=== PATIENT | female | born 1935 | race Two or more races ===

== ENCOUNTER 2020-03-08 11:32 | Inpatient (IN) | payer MEDICARE, OTHER ==
[~2020-03-08] VITALS: Ht 165.1 cm; Wt 91.3 kg
--- NOTE | 2020-03-08 11:32 | NUR ---
BIB [facility] FROM HOME,C/O CHEST PAIN RADIATING TO L JAW, RAPID AFIB ON THE MONITOR, TO ER BED 2, HOOKED TO MONITOR, CHANGED TO HOSP GOWN, WARM BLANKET PROVIDED. PATIENT AAO x 4, BREATHING EVEN AND UNLABORED. DR DEMARCO AT BEDSIDE
[2020-03-08 11:47] LABS: HEMATOCRIT 38 % (33-45); HEMOGLOBIN 12.3 g/dL (11.5-14.8); MEAN CORPUSCULAR VOLUME 84 fL (82-100); RED BLOOD CELL COUNT(AUTO) 4.46 MIL/uL (4.0-5.2); WHITE BLOOD COUNT (AUTO) 10.5 K/uL (4.3-11.0)
[2020-03-08] MEDS ORDERED: DILTIAZEM HCL 25 MG IV ONE (11:47)
[2020-03-08 11:48] LABS: BASOPHILS # (AUTO) 0.1 /CMM (0.0-0.2); BASOPHILS % (AUTO) 0.9 % (0.0-2.0); EOSINOPHILS % (AUTO) 2.3 % (0.0-6.0); LYMPHOCYTES # (AUTO) 3.3 /CMM (0.8-4.8); MEAN CORPUSCULAR HGB CONC 33 g/dl (31.0-36.0); MONOCYTES # (AUTO) 0.8 /CMM (0.1-1.30); MONOCYTES % (AUTO) 7.5 % (2.0-12.0); NEUTROPHILS # (AUTO) 6.1 /CMM (1.8-8.9); NEUTROPHILS % (AUTO) 58.3 % (43.0-81.0); PLATELET COUNT (AUTO) 289 /CMM (150-450)
--- NOTE | 2020-03-08 11:53 | NUR ---
CALLED FOR TELE BED, AND SUBMITTED MOVE SHEET TO ADMITTING
[2020-03-08 11:56] LABS: CALCIUM, SERUM 9.4 mg/dL (8.5-10.1); CARBON DIOXIDE 28 mmol/L (21-32); CHLORIDE 98 mmol/L (98-107); GLUCOSE 173 mg/dL (74-106); POTASSIUM 3.3 mmol/L (3.5-5.1); SODIUM SERUM 134 mmol/L (136-145); UREA NITROGEN, BLOOD 12 mg/dL (7-18)
[2020-03-08] MEDS ORDERED: DILTIAZEM HCL 50 MG IV IV ONE (12:00)
[2020-03-08 12:02] LABS: ALANINE AMINOTRANSFERASE 17 U/L (12-78); ALBUMIN 3.4 g/dL (3.4-5.0); ALKALINE PHOSPHATASE 103 U/L (46-116); ASPARTATE AMINOTRANSFERASE 14 U/L (15-37); BILIRUBIN,DIRECT 0.1 mg/dL (0.0-0.2); BILIRUBIN,TOTAL 0.3 mg/dL (0.2-1.0)
--- NOTE | 2020-03-08 12:10 | NUR ---
GOT BED 307-1
[2020-03-08] MEDS ORDERED: ATOR10TA PO ×2 (12:14→12:38)
[2020-03-08] MEDS ORDERED: TEMA15CA PO ×2 (12:14→12:38)
[2020-03-08] MEDS ORDERED: LEVO100T9 PO ×2 (12:14→12:38)
[2020-03-08] MEDS ORDERED: APIX5TAB PO ×3 (12:14→13:23)
[2020-03-08] MEDS ORDERED: MECL-159 PO ×2 (12:14→12:38)
[2020-03-08] MEDS ORDERED: IRBE1TAB41 PO ×2 (12:14→12:38)
[2020-03-08] MEDS ORDERED: POLY15DR40 EACHEYE ×2 (12:22→12:38)
[2020-03-08] MEDS ORDERED: NIFE-35 PO (12:43)
--- NOTE | 2020-03-08 13:00 | NUR ---
DAUGHTER SHILO MENDEZ [phone]
--- NOTE | 2020-03-08 13:08 | NUR ---
REPORT GIVEN TO KSENIA VEE OF TELE UNIT
--- NOTE | 2020-03-08 13:32 | NUR ---
WOLF ARORA DNP AT BEDSIDE
[2020-03-08 13:47] VITALS: BP 123/77
[2020-03-08] MEDS ORDERED: HYDROCODONE/APAP 5/325MG 1 EACH TABLET PO PRN (14:00)
[2020-03-08] MEDS ORDERED: MAG HYDROX/AL HYDROX/SIMETH 30 ML UDC PO PRN (14:00)
[2020-03-08] MEDS ORDERED: DEXTROSE 50%-WATER 50 ML DISP.SYRIN IV PRN (14:00)
[2020-03-08] MEDS ORDERED: Z GUARD REMEDY 2 OZ OINT TP PRN (14:00)
[2020-03-08] MEDS ORDERED: NITROGLYCERIN 0.4 MG/TAB BOTTLE SL PRN (14:00)
[2020-03-08] MEDS ORDERED: ONDANSETRON HCL/PF 4 MG/2 ML VIAL IVP PRN (14:00)
[2020-03-08] MEDS ORDERED: MORPHINE SULFATE INJ 2 MG/ML DISP.SYRIN IV PRN (14:00)
[2020-03-08] MEDS ORDERED: MAGNESIUM HYDROXIDE 30 ML UDC PO PRN (14:00)
[2020-03-08] MEDS ORDERED: POTASSIUM CHLORIDE 20 MEQ TAB.PRT.SR PO ONE (14:00)
--- NOTE | 2020-03-08 14:00 | NUR ---
BUSINESS INTELLIGENCE ETL DEVELOPER NOTES PATIENT ADMITTED FROM ER TELE, 84 Y/OLD FEMALE ON DX OF CHEST PAIN. TELE MONITOR ON HR 77. PATIENT A/O X4, REFUSED PAIN AT THIS TIME. V/S TAKEN BP 128/77, P-124, R-19, O2-97 ROOM AIR, T-97.8. SKIN INTACT, AMBULATORY SELF CARE. IV ACCESS ON LEFT AC INTACT. HOSPITALIST AWARE OF NEW PATIENT , AND MEDICATION. CALL LIGHT WITHIN TO REACH. CONTINUED MONITORING.
[2020-03-08] MEDS ORDERED: POLYVINYL ALCOHOL 15 ML BOTTLE EACHEYE PRN (14:30)
[2020-03-08 16:00] VITALS: BP 128/77
[2020-03-08] MEDS: BLOOD SUGAR DIAGNOSTIC 1 EACH STRIP IN SCH ×2 (16:39→21:11)
[2020-03-08] MEDS: ELIQUIS 5 MG PO SCH (16:56)
--- NOTE | 2020-03-08 16:56 | NUR ---
RN NOTES BS-147 MG/DL PATIENT REFUSED COVERAGE, ALSO ADMINISTERED SCHEDULED MEDICATION, V/S STABLE. ECHO DONE AT THIS TIME VIA US TECH, PATIENT REFUSED PAIN. CALL LIGHT WITHIN TO REACH, SAFETY PRECAUTION MAINTAINED ALL THE TIME.
[2020-03-08] MEDS ORDERED: APIXABAN 5 MG TABLET PO SCH (17:00)
--- NOTE | 2020-03-08 19:30 | NUR ---
RN NOTES TROPONIN LEVEL IS 0.210 AT THIS TIME NOTIFIED ONCSAMY ANGEL, WAITING FOR RESPOND. PATIENT WAS COMPLAINING OF HEADACHE. PATIENT AMBULATORY SELF CARE. NO ACUTE RESPIRATORY DISTRESS. ENDORSED ONCOMING NURSE FOLLOW PLAN OF CARE.
[2020-03-08 20:00] VITALS: BP_SYST 112; BP_DIAS 54; BP_DIAS 57
[2020-03-08] MEDS: ACETAMINOPHEN 325 MG TABLET PO PRN (20:08)
[2020-03-08] MEDS: ASPIRIN 81 MG TAB.CHEW PO SCH (20:52)
[2020-03-08] MEDS: INSULIN REGULAR, HUMAN 100 UNIT/ML 3 ML VIAL SQ PRN (21:10)
[2020-03-09] VITALS (7 sets, daily range): BP systolic 125–136; BP diastolic 56–69
[2020-03-09] MEDS: ZOLPIDEM TARTRATE 5 MG TABLET PO PRN ×2 (01:22→23:15)
--- NOTE | 2020-03-09 05:33 | NUR ---
RN notes Patient awake in bed comfortably resting. Alert and oriented, verbally able to communicate needs (turkmen speaking). No distress noted, breathing even and unlabored. On O2 via nasal cannula tolerating well. No complaint of pain or discomfort. PPatient asked for sleeping pills, ambien 5mg given with help. Troponin level at 11:42 was <0.017, 17:15 0.210 and at 23.28 0.293. Relayed results to MD (Dr. Osuna) with no orders as of this time. Kept clean and dry. Will endorse to next shift for continuity of care.
[2020-03-09 06:26] LABS: BASOPHILS # (AUTO) 0.1 /CMM (0.0-0.2); BASOPHILS % (AUTO) 1.2 % (0.0-2.0); EOSINOPHILS % (AUTO) 3.1 % (0.0-6.0); HEMATOCRIT 35 % (33-45); HEMOGLOBIN 11.6 g/dL (11.5-14.8); LYMPHOCYTES # (AUTO) 3.2 /CMM (0.8-4.8); LYMPHOCYTES % (AUTO) 35.4 % (20.0-44.0); MEAN CORPUSCULAR HGB CONC 33 g/dl (31.0-36.0); MEAN CORPUSCULAR VOLUME 84 fL (82-100); MONOCYTES # (AUTO) 0.9 /CMM (0.1-1.30); MONOCYTES % (AUTO) 10.1 % (2.0-12.0); NEUTROPHILS # (AUTO) 4.6 /CMM (1.8-8.9); NEUTROPHILS % (AUTO) 50.2 % (43.0-81.0); PLATELET COUNT (AUTO) 265 /CMM (150-450); RED BLOOD CELL COUNT(AUTO) 4.22 MIL/uL (4.0-5.2); WHITE BLOOD COUNT (AUTO) 9.1 K/uL (4.3-11.0)
[2020-03-09 06:53] LABS: CALCIUM, SERUM 8.8 mg/dL (8.5-10.1); CREATININE 1.2 mg/dL (0.6-1.3); MAGNESIUM 2.2 mg/dL (1.8-2.4); PHOSPHORUS 3.5 mg/dL (2.5-4.9); POTASSIUM 4.1 mmol/L (3.5-5.1)
[2020-03-09 07:05] LABS: THYROID STIMULATING HORMONE 1.887 uIU/mL (0.358-3.74)
[2020-03-09] MEDS: LEVOTHYROXINE SODIUM 100 MCG TABLET PO SCH (07:56)
[2020-03-09] MEDS: BLOOD SUGAR DIAGNOSTIC 1 EACH STRIP IN SCH ×4 (07:56→21:58)
--- NOTE | 2020-03-09 08:00 | NUR ---
RN NOTES RECEIVED PATIENT IN THE BED A/O X3, ON O2-2L NC, PATIENT TELE HR 79, PATIENT REFUSED PAIN, ADMINISTERED SCHEDULED MEDICATION, V/S STABLE, BS-88 MG/DL, PATIENT TOLERATED BREAKFAST WELL. PATIENT USING BATHROOM, CALL LIGHT WITHIN TO REACH, IV ACCESS ON LEFT AC INTACT. CONTINUED MONITORING.
[2020-03-09] MEDS: ATORVASTATIN 10 MG TABLET PO SCH (08:27)
[2020-03-09] MEDS: ASPIRIN 81 MG TAB.CHEW PO SCH (08:28)
[2020-03-09] MEDS: ELIQUIS 5 MG PO SCH ×2 (08:32→17:52)
[2020-03-09] MEDS: HYDROCHLOROTHIAZIDE PO SCH (08:32)
[2020-03-09] MEDS: IRBESARTAN PO SCH (08:32)
--- NOTE | 2020-03-09 08:42 | NUR ---
RN NOTES PATIENT SCHEDULED CT ANGIO HEART WITH 3 D IMAGES, , CONSENT SIGNED.
[2020-03-09] MEDS ORDERED: APIXABAN 5 MG TABLET PO SCH ×2 (09:00)
[2020-03-09] MEDS ORDERED: NIFEdipine XL (30MG) 30 MG TAB PO SCH (09:00)
[2020-03-09] MEDS ORDERED: methylPREDNISolone SOD SUCC 125 MG/2ML VIAL IV ONE (10:00)
[2020-03-09] MEDS ORDERED: diphenhydrAMINE HCL 50 MG CAPSULE PO ONE (10:00)
--- NOTE | 2020-03-09 10:12 | NUR ---
RN NOTES PATIENT HAS ALLERGY OF IODINE, GOING TO THE CT ANGIOGRAPHY, AND PER DAIRY CATTLE FARM WORKER PRESCRIBED BEFORE TEST, BENADRYL 25 MG PO X1, NS SOLWE MEDROL 125 MG/ML IV PUSH Addendum: 03/09/20 at 1020 by MARY GRACE EDMONDS RN UPPER NOTES CORRECTION FOR DOCUMENTATION: SOLU MEDROL 125 MG/ML IV PUSH X1. PATIENT WILL EDUCATION TEACHER IN 30 MINS PER CAT LAB.
--- NOTE | 2020-03-09 10:20 | NUR ---
rn notes patient stable scrap picker for CT angio at this time.
[2020-03-09] MEDS ORDERED: IV NS 0.9% 250 ML IV ONE (10:29)
[2020-03-09] MEDS ORDERED: IOHEXOL-350 100 ML VIAL IV ONE (10:29)
[2020-03-09] MEDS ORDERED: METOPROLOL TARTRATE INJ 5 MG/5 ML AMPUL ONE (10:30)
[2020-03-09] MEDS ORDERED: NITROGLYCERIN 0.4 MG/TAB BOTTLE SL ONE (10:30)
[2020-03-09] MEDS ORDERED: NITROGLYCERIN 0.4 MG/TAB BOTTLE ONE (10:30)
[2020-03-09] MEDS ORDERED: IV NS 0.9% 500 ML IV PRN (10:30)
[2020-03-09] MEDS: METOPROLOL TARTRATE INJ 5 MG/5 ML AMPUL IVP PRN ×2 (10:51→10:56)
--- NOTE | 2020-03-09 11:20 | NUR ---
CTA PROCEDURE DONE PT IS AAOX4, NOT IN RESPIRATORY DISTRESS, V/S STABLE, KEPT RESTED AND COMFORTABLE, IV SITE INTACT AND INFUSING WELL, REPORT GIVEN TO MARIUSZ GARCIA FOR ERIN.
--- NOTE | 2020-03-09 11:28 | NUR ---
rn notes patient back from CT at this time, stable, no acute respiratory distress, refused itching, no sob at this time, continued monitoring.
[2020-03-09] MEDS: METOPROLOL TARTRATE 50 MG TABLET PO SCH ×2 (12:47→17:51)
--- NOTE | 2020-03-09 18:00 | NUR ---
RN NOTES BS-176 MG/DL REFUSED COVERAGE, ADMINISTERED SCHEDULED MEDICATION, V/S WNL, PATIENT REFUSED PAIN, ALSO ADMINISTERED MAALOX FOR HEARTBURN, PATIENT SELF CARE, INFILTRATED IV ACCESS. TOLERATED DINNER WELL. CALL LIGHT WITHIN TO REACH. ENDORSED ONCOMING NURSE FOLLOW PLAN OF CARE.
--- NOTE | 2020-03-09 19:00 | NUR ---
TELE/RN OPENING NOTES: RECEIVED PT. STABLE, AWAKE IN BED. DOMINICAN SPEAKING BUT UNDERSTANDS AND SPEAKS MINIMAL YI. A/OX4. VERBALLY RESPONSIVE AND ABLE TO MAKE NEEDS KNOWN. ON TELE MONITOR WITH CURRENT READING OF SR WITH HR ON THE 60S. AMBULATORY, SKIN INTACT. NO IV SITE NOTED. WILL INSERT A NEW ONE. NO SOB NOTED. NO C/O PAIN AT THIS TIME. BREATHING EVEN AND UNLABORED. ON ROOM AIR, SATURATING WELL. SAFETY MEASURES IN PLACE. WILL CONTINUE TO MONITOR ACCORDINGLY.
[2020-03-09] MEDS: ACETAMINOPHEN 325 MG TABLET PO PRN (20:45)
--- NOTE | 2020-03-09 20:46 | NUR ---
TELE/RN NOTES: PT. REQUESTED TYLENOL FOR HEADACHE. VSS. ADMINISTERED 650MG TYLENOL PO ORDERED. TOLERATED WELL. WILL CONTINUE TO MONITOR.
[2020-03-09] MEDS: INSULIN REGULAR, HUMAN 100 UNIT/ML 3 ML VIAL SQ PRN (21:59)
--- NOTE | 2020-03-09 21:59 | NUR ---
TELE/RN NOTES: ACCUCHECK FOR HS IS 169MG/DL. PT. REFUSED INSULIN COVERAGE. PER PT "BEFORE I DON'T GET INSULIN. SO I DON'T WANT TO." EXPLAINED TO PT. THE RISKS AND BENEFITS X3. STILL REFUSED. WILL KEEP MONITORING.
--- NOTE | 2020-03-09 23:17 | NUR ---
TELE/RN NOTES: PT REQUESTED FOR SLEEPING MEDICATION. VSS. ADMINISTERED AMBIEN 5MG PO ORDERED. WILL REASSESS AND CONTINUE TO MONITOR.
[2020-03-10] VITALS: BP 140/67
[2020-03-10] MEDS: METOPROLOL TARTRATE 50 MG TABLET PO SCH ×2 (00:02→05:59)
[2020-03-10 04:00] VITALS: BP 149/68
[2020-03-10 06:30] LABS: CALCIUM, SERUM 8.7 mg/dL (8.5-10.1); POTASSIUM 3.7 mmol/L (3.5-5.1)
[2020-03-10] MEDS: BLOOD SUGAR DIAGNOSTIC 1 EACH STRIP IN SCH ×2 (06:30→11:53)
[2020-03-10] MEDS: INSULIN REGULAR, HUMAN 100 UNIT/ML 3 ML VIAL SQ PRN ×2 (06:31→11:55)
--- NOTE | 2020-03-10 06:31 | NUR ---
TELE/RN NOTES: ACCUCHECK FOR AC IS 137. PT REFUSES INSULIN. EDUCATED ON RISKS AND BENEFITS X3. STILL REFUSED. WILL CONTINUE TO MONITOR.
--- NOTE | 2020-03-10 06:51 | NUR ---
TELE/RN CLOSING NOTES: PT. STABLE, AWAKE IN BED. BRUNEIAN SPEAKING BUT UNDERSTANDS AND SPEAKS MINIMAL YAKUT. A/OX4. VERBALLY RESPONSIVE AND ABLE TO MAKE NEEDS KNOWN. ON TELE MONITOR WITH CURRENT READING OF SB WITH HR ON THE 50S. AMBULATORY, SKIN INTACT. IV SITE LOCATED ON THE RIGHT HAND #20G. NO SOB NOTED. NO C/O PAIN AT THIS TIME. BREATHING EVEN AND UNLABORED. ON ROOM AIR, SATURATING WELL AT 95-96%. REFUSED INSULIN FOR AC. 137. SAFETY MEASURES IN PLACE. WILL ENDORSE TO DAY SHIFT FOR ERIN.
--- NOTE | 2020-03-10 07:10 | NUR ---
TELE/RN NOTES: PER DR. DISLA "DON'T GIVE MORNING MEDS." WILL ENDORSE TO DAY SHIFT RN Addendum: 03/10/20 at 0712 by TANVIR HERNANDEZ RN PER DR. DISLA "DON'T GIVE BP MORNING MEDS". WILL ENDORSE TO DAY SHIFT RN
[2020-03-10 08:00] VITALS: BP 126/60
--- NOTE | 2020-03-10 08:00 | NUR ---
LABORATORY CHIEF OPENING NOTES RECEIVED PT IN BED AWAKE ALERT AND ORIENTED X4. . GUYANESE SPEAKING BUT UNDERSTANDS AND SPEAKS MINIMAL TURKMEN. VERBALLY RESPONSIVE AND ABLE TO MAKE NEEDS KNOWN. NO CARDIAC OR RESPIRATORY DISTRESS NOTED. NO SOB NOTED. SATURATING WELL ON ROOM AIR. ON CARDIAC TELE MONITOR WITH SR WITH HR OF 60. PT IS AMBULATORY, SKIN INTACT. IV ACCESS NOTED ON R HAND G20. INTACT AND PATENT AND FLUSHING WELL. NO S/S OF INFECTION OR INFILTRATION NOTED. NO COMPLAINTS OF PAIN OR DISCOMFORT AT THIS TIME. SAFETY PRECAUTIONS IN PLACE. BED LOCKED AND IN LOW POSITION. SIDE RAILS UP. BED ALARM ON. WILL CONT TO MONITOR.
[2020-03-10] MEDS: LEVOTHYROXINE SODIUM 100 MCG TABLET PO SCH (08:20)
[2020-03-10] MEDS: ATORVASTATIN 10 MG TABLET PO SCH (08:30)
[2020-03-10] MEDS: ELIQUIS 5 MG PO SCH (08:31)
[2020-03-10] MEDS: HYDROCHLOROTHIAZIDE PO SCH (08:31)
[2020-03-10] MEDS: IRBESARTAN PO SCH (08:31)
[2020-03-10] MEDS ORDERED: METOPROLOL SUCCINATE 50 MG TAB.SR.24H PO SCH (09:00)
[2020-03-10 12:00] VITALS: BP 111/60
--- NOTE | 2020-03-10 14:15 | NUR ---
D/C HOME PT WAS DISCHARGED HOME IN STABLE CONDITION. VITAL SIGNS STABLE. NO CARDIAC OR RESP DISTRESS NOTED. NO SOB NOTED. STABLE ON ROOM AIR. ALL D/C INSTRUCTIONS GIVEN AND EXPLAINED TO PT IN LAYMEN TERM, ALL MEDS EXPLAINED TO PT, INSTRUCTIONS GIVEN ON HOW TO TAKE BP MEDS SUCH TAKING BP FIRST PRIOR TO TAKING MEDICATION TO PREVENT ABRUPT DROP IN BP'S. PT AGREED. IV ACCESS WAS REMOVED ON R HAND. PT UNDERSTOOD ALL TEACHING. ALSO INSTRUCTED PT TO MAKE A FOLLOW UP APPOINTMENT WITH HER OFFICE REP DR. NGUYEN IN 1 WEEK AND TO BRING ALL D/C PAPER WORKS AND MEDS TO HER APPT. PT AGREED.PT LEFT VIA PRIVATE CAR AND WAS PICKED UP BY HER DAUGHTER.
== END 2020-03-10 14:15 | disposition home or self-care (01) | DRG 282 ==
LOC: ER 11:33 → TELE 13:18 → MED 03-10 10:27
PROVIDERS: ADMIT Nurse Practitioner Acute Care; ATTEND Nurse Practitioner Acute Care
DX: I48.91 Unspecified atrial fibrillation (principal); I21.4 Non-ST elevation (NSTEMI) myocardial infarction; E03.9 Hypothyroidism, unspecified; E78.5 Hyperlipidemia, unspecified; E87.6 Hypokalemia; Z68.30 Body mass index [BMI] 30.0-30.9, adult; E66.9 Obesity, unspecified; Z91.041 Radiographic dye allergy status; Z79.01 Long term (current) use of anticoagulants; R73.9 Hyperglycemia, unspecified; I10 Essential (primary) hypertension
CPT/HCPCS: 36415; 71045-TC; 75574; 80048-TC; 80061-TC; 80076-TC; 82962-TC; 83735-TC; 84100-TC; 84443-TC; 84484-TC; 85025-TC; 85730-TC; 87081-TC; 93307-TC; G0378; J1815; J2930; J3490; J7050; Q0163; Q9967